=== PATIENT | male | born 1955 | race Caucasian/White ===

== ENCOUNTER 2022-02-21 10:01 | Outpatient (CLI) | payer OTHER, SELFPAY ==
--- NOTE | 2022-02-21 | XR_ITS ---
WS: [id number] Lumbar spine, 3 views, 02/21/2022 Clinical Data: Lower back pain Comparison: None. Findings: No compression fractures or subluxation is seen. There is degenerative disc narrowing at L5-S1. Anter ior spurring is present at L4 and L5.. The transverse processes and SI joints are normal. There is minimal calcification in the wall of the abdominal aorta. XR/XR lumbar spine 2-3V* [id number] Impression: 1. Degenerative disc narrowing at L5-S1. 2. Mild osteoarthritis L4-L5.
--- NOTE | 2022-02-21 | XR_ITS ---
WS: [id number] Left knee, AP and lateral views, 02/21/2022 Clinical Data: Left Knee Pain Comparison: None. Findings: No fractures or dislocations are seen. The joint spaces are normal. The patella is intact. The soft t issues are unremarkable. XR/XR knee LT 1-2V [id number] Impression: Negative left knee. Kellgren-Eliel Classification: grade 0 (none): definite absence of x-ray lashawn nges of osteoarthritis
--- NOTE | 2022-02-21 10:18 | XR_ITS ---
WS: [id number] Right knee, AP and lateral views, 02/21/2022 Clinical Data: Right Knee Pain Comparison: None. Findings: No fractures or dislocations are seen. The joint spaces are normal. The patella is intact. The soft t issues are unremarkable. There is a small spur of the anterior superior margin of the patella. XR/XR knee RT 1-2V [id number] Impression: Negative right knee. Kellgren-Eliel Classification: grade 1 (doubtful): doubtful joint space narr owing and possible osteophytic lipping
== END 2022-02-21 10:02 | disposition home or self-care (01) ==
LOC: RAD 10:05
PROVIDERS: PCP Family Medicine; Visit Provider Dermatology
DX: Z02.71 Encounter for disability determination (principal); M25.562 Pain in left knee; M25.561 Pain in right knee; M51.37 Other intervertebral disc degeneration, lumbosacral region; M47.816 Spondylosis without myelopathy or radiculopathy, lumbar region
CPT/HCPCS: 72100; 73560

== ENCOUNTER → 2024-02-22 08:00 | Outpatient (BNVA) | payer MEDICARE, SELFPAY | PROVIDERS: PCP Family Medicine; Referring Provider Family Medicine; Visit Provider Student in an Organized Health Care Education/Training Program | DX: Z12.11 Encounter for screening for malignant neoplasm of colon (principal); Z98.890 Other specified postprocedural states; Z86.0100 Personal history of colon polyps, unspecified | CPT/HCPCS: 99024; 99204 ==

== ENCOUNTER 2024-04-11 08:06 | Day surgery (SDC) | payer MEDICARE, SELFPAY ==
[2024-04-11 08:18] VITALS: BP 164/93; PULSE 54; RESP 18; TEMP 36.1; O2SAT 98; BMI 28.0
[2024-04-11] MEDS: sodium chloride 0.9% 500 ML 15 ML IV (08:29)
--- NOTE | 2024-04-11 08:55 | ANES.PREANE2 ---
Pre-Anesthetic Assessment Height/Weight: Height 5 ft 9 in Weight 190 lb Temp Pulse Resp BP Pulse Ox O2 Del Method 97 F L 54 L 18 164/93 98 Room Air 04/11/24 08:18 04/11/24 08:18 04/11/24 08:18 04/11/24 08:18 04/11/24 08:18 04/11/24 08:18 Preop Diagnosis: GERD, screening colonoscopy Operation Date: 04/11/24 09:00 Proposed Procedures p EGD(Not Applicable) - Chuy Godinez MD s Colonoscopy(Not Applicable) - Chuy Godinez MD Was Beta Miriam taken within 24 hours: Yes Was Clonidine taken within 24 hours: N/A Last intake: Intake Last Liquid Date 04/10/24 Last Liquid Time 23:00 Last Solid Date 04/09/24 Last Solid Time 23:00 Social No alcohol and No tobacco Exam alert, oriented x 3, clear to auscultation bilaterally and regular rate & rhythm Airway Submandibular: within normal limits Cervical ROM: within normal limits Mallampati: Class II Dentition: full Anesthetic Plan ASA status: 2 Anesthesia: MAC Other: No prior issues with anesthesia Completed bowel prep Patient denies any pulmonary issues Hypertension on atenolol GERD, controlled with diet METs greater than 4 Plan for MAC anesthetic Medications/Allergies Home Medications Medication Instructions Recorded Confirmed Last Taken Type atenolol 25 mg tablet 25 mg PO DAILY 06/21/21 04/08/24 04/10/24 History sertraline 50 mg tablet (Zoloft) 50 mg PO DAILY 06/21/21 04/08/24 04/10/24 History triamcinolone acetonide 0.1 % 1 applic topical BID #80 grams 07/05/22 04/08/24 Unknown Rx topical ointment Allergies Allergy/AdvReac Type Severity Reaction Status Date / Time No Known Allergies Allergy Verified 04/08/24 09:13 Current Medications Generic Name Dose Route Start Last Admin Trade Name Freq PRN Reason Stop Dose Admin Sodium Chloride 500 mls @ 15 mls/hr 04/11/24 08:10 04/11/24 08:29 Sodium Chloride 0.9% IV 04/12/24 08:09 15 mls/hr .Q24H PRN Administration COLONOSCOPY FLUIDS PFSH Anesthesia Medical History (Updated 02/22/24 @ 08:13 by Elsa Gallardo) Hypertension Family History Other CAD (coronary artery disease) Diabetes Hypertension Denies family history of Cancer Social History Smoking and tobacco/nicotine status: never used tobacco/nicotine Data Anesthesia Cardiac Studies: No Data to Display
--- NOTE | 2024-04-11 08:59 | W.PM.OPSFHP ---
Same Day Surgery H&P Indication for Procedure/HPI DATE OF PROCEDURE: April 11, 2024 CHIEF COMPLAINT/INDICATIONFOR SURGICAL PROCEDURE: heartburn and screening colonoscopy PREOP DIAGNOSIS: GERD, screening colonoscopy PLANNED PROCEDURE: Operation Date: 04/11/24 09:00 Proposed Procedures p EGD(Not Applicable) - Chuy Godinez MD s Colonoscopy(Not Applicable) - Chuy Godinez MD Medications/Allergies* Home Medications Medication Instructions Recorded Confirmed Type atenolol 25 mg tablet 25 mg PO DAILY 06/21/21 04/08/24 History sertraline 50 mg tablet (Zoloft) 50 mg PO DAILY 06/21/21 04/08/24 History Allergies/Adverse Reactions Allergy/AdvReac Type Severity Reaction Status Date / Time No Known Allergies Allergy Verified 04/08/24 09:13 Current Medications: Generic Name Dose Route Start Last Admin Trade Name Freq PRN Reason Stop Dose Admin Sodium Chloride 500 mls @ 15 mls/hr 04/11/24 08:10 04/11/24 08:29 Sodium Chloride 0.9% IV 04/12/24 08:09 15 mls/hr .Q24H PRN Administration COLONOSCOPY FLUIDS Pertinent History/Comorbid Conditions* Medical History (Updated 05/29/22 @ 18:28 by Ted Iniguez MD) Hypertension Family History (Updated 06/21/21 @ 10:37 by Maggie Walters LPN) Diabetes CAD (coronary artery disease) Hypertension Denies family history of Cancer Social History Smoking and tobacco/nicotine status: never used tobacco/nicotine Pertinent Exam Findings alert, oriented x 3, clear to auscultation bilaterally and regular rate & rhythm abdomen soft, nt, nd Recommendations Surgery/Procedure today Coding Level of Care Code Acute Code for Chg Fwd
[2024-04-11 09:23] VITALS: BP 184/136; PULSE 71; RESP 16; TEMP -17.7; TEMP 0.1; O2SAT 94
[2024-04-11 09:39] VITALS: BP 110/81; PULSE 55; RESP 18; O2SAT 96
--- NOTE | 2024-04-11 10:05 | ANE.PACU2 ---
Inpatient post-anesthesia follow up: Airway intact: Yes Vital signs: Temperature 0.1 F Pulse Rate 55 Respiratory Rate 18 Blood Pressure 110/81 Pulse Oximetry 96 Oxygen Delivery Me thod Room Air Oxygen Flow Rate Fraction of Inspir ed Oxygen Hydration adequate: Yes Nausea and vomiting: No Pain level: 1 Mental status: Baseline
== END 2024-04-11 10:05 | disposition home or self-care (01) ==
PROVIDERS: PCP Family Medicine; Visit Provider Student in an Organized Health Care Education/Training Program
PROC: 0DJ08ZZ Inspection of Upper Intestinal Tract, Via Natural or Artificial Opening Endoscopic (ICD-10-PCS; principal; 2024-04-11 09:00)
PROC: 0DJD8ZZ Inspection of Lower Intestinal Tract, Via Natural or Artificial Opening Endoscopic (ICD-10-PCS; CPT 45378; 2024-04-11 09:00)
DX: Z12.11 Encounter for screening for malignant neoplasm of colon (principal); R12 Heartburn; K21.9 Gastro-esophageal reflux disease without esophagitis; I10 Essential (primary) hypertension; K29.80 Duodenitis without bleeding; K57.30 Diverticulosis of large intestine without perforation or abscess without bleeding; K29.70 Gastritis, unspecified, without bleeding
CPT/HCPCS: 43239; 88305; G0121; J7040

== ENCOUNTER → 2024-04-22 13:26 | Outpatient (BNVA) | payer MEDICARE, SELFPAY | PROVIDERS: PCP Family Medicine; Visit Provider Student in an Organized Health Care Education/Training Program | DX: Z09 Encounter for follow-up examination after completed treatment for conditions other than malignant neoplasm (principal) | CPT/HCPCS: 99213 ==

== ENCOUNTER → 2024-07-11 09:02 | Outpatient (BNVA) | payer MEDICARE, SELFPAY | PROVIDERS: PCP Family Medicine; Visit Provider Nurse Practitioner Family | DX: L92.0 Granuloma annulare (principal); L82.1 Other seborrheic keratosis; L57.3 Poikiloderma of Civatte; L57.8 Other skin changes due to chronic exposure to nonionizing radiation; X32.XXXA Exposure to sunlight, initial encounter; L81.4 Other melanin hyperpigmentation; D22.0 Melanocytic nevi of lip | CPT/HCPCS: 99214 ==

== ENCOUNTER 2025-03-21 08:40 | Outpatient (CLI) | payer MEDICARE, OTHER, SELFPAY ==
--- NOTE | 2025-03-21 08:47 | CT_ITS ---
WS: [id number] CT ABDOMEN AND PELVIS NONCONTRAST HISTORY: HEMATURIA, LEFT sided flank pain. TECHNIQUE: Imaging performed through the abdomen and pelvis. Coronal and sagittal reformats are submitted. All CT scans at [facility] use at least one of these dose optimization techniques: automated exposure control; mA and/or kV adjustment per patient size (includes targeted exams where dose is matched to clinical indication); or iterative reconstruction. DLP: 444.34 mGy.cm COMPARISON: None available. Lower thorax: Lung bases are clear. Visualized heart is normal. No hiatal hernia. Liver: Liver is normal size. Diffuse low attenuation from hepatic steatosis. Hounsfield units are markedly decreased. No intrahepatic duct dilatation. No mass identified. Caudate lobe is enlarged. Gallbladder: Normal gallbladder. No pericholecystic fluid or cholelithiasis. No gallbladder wall thickening. Pancreas: Normal size and attenuation. Normal pancreatic duct. No pancreatitis or mass. Spleen: Normal. Adrenal glands: Normal. No mass. Right kidney: Normal size kidney. 1.0 cm low-attenuation mass from the lower pole is indeterminate. Hounsfield units are low suggesting this may be a cyst. No hydronephrosis. Nonobstructing 2 mm calcification in the upper pole. Ureter is normal caliber. Left kidney: Mild perinephric stranding with no obstruction. Normal size ureter. Aorta: Mild atherosclerosis abdominal aorta with no aneurysm. No free fluid, intraperitoneal air or significant lymphadenopathy. GI tract: Normally distended stomach. Normal appendix. No small bowel obstruction. Diffuse constipation. Numerous diverticula throughout the colon. Greater distribution of diverticula in the descending and sigmoid colon. Very mild inflammatory changes in the mid descending colon and sigmoid colon. There is marked wall thickening of the sigmoid colon. There is no perforation or abscess. There is some very mild stranding in the adjacent pericolonic distribution suggesting there may be a mild diverticulitis. Abdominal wall: Small umbilical hernia contains fat only. Pelvis: Normally distended urinary bladder. Patent RIGHT inguinal canal contains fat. Osseous structures: Degenerative disc disease at L5-S1. CT/CT abdomen pelvis wo con [id number] IMPRESSION: 1. No renal or ureteral obstruction. 2. Nonobstructing 2 mm calcification upper pole RIGHT kidney. 3. Diffuse hepatic steatosis. Caudate lobe is enlarged which can be seen with cirrhosis. 4. Extensive diverticular burden in the descending and sigmoid colon. There is very minimal pericolonic stranding in the descending and sigmoid colon which c an be seen with very mild acute diverticulitis. There is no abscess or free flu id. 5. Fat-containing patent RIGHT inguinal canal.
== END 2025-03-21 08:41 | disposition home or self-care (01) ==
LOC: RAD 08:44
PROVIDERS: PCP Family Medicine; Visit Provider Family Medicine
DX: R10.9 Unspecified abdominal pain (principal); K76.0 Fatty (change of) liver, not elsewhere classified
CPT/HCPCS: 74176